=== PATIENT | male | born 1965 | race Caucasian/White ===

== ENCOUNTER 2017-09-15 12:29 | Emergency (ER) | payer OTHER ==
[~2017-09-15] VITALS: Ht 177.8 cm; Wt 99.8 kg
--- OUTSIDE RECORDS SUMMARY | 2017-09-15 12:36 | XMS REPORT | Continuity of Care Document ---
Author Author [facility] Organization [facility] Address Unknown Phone Unavailable Allergies There is no data. Medications There is no data. Problems There is no data. Procedures There is no data. Results There is no data. Encounters ACCT No. Visit Date/Time Discharge Status Pt. Type Provider Facility Loc./Unit Complaint [id number] 07/10/2017 08:54:06 07/10/2017 23:59:59 CLS Outpatient Terry Dalton [id number] 07/02/2017 08:07:41 07/02/2017 23:59:59 CLS Outpatient Terry Dalton [id number] 07/09/2016 08:49:22 07/09/2016 23:59:59 CLS Outpatient Terry Dalton [id number] 06/27/2016 08:05:12 06/27/2016 23:59:59 CLS Outpatient Terry Dalton [id number] 07/07/2015 09:15:21 07/07/2015 23:59:59 CLS Outpatient Terry Dalton [id number] 06/23/2015 09:16:41 06/23/2015 23:59:59 CLS Outpatient Terry Dalton [id number] 07/01/2014 09:19:28 07/01/2014 23:59:59 CLS Outpatient Terry Dalton [id number] 06/28/2014 09:38:29 06/28/2014 23:59:59 CLS Outpatient Terry Dalton [id number] 09/15/2013 09:37:35 09/15/2013 23:59:59 CLS Outpatient Terry Dalton [id number] 07/20/2013 16:06:33 07/20/2013 23:59:59 CLS Outpatient Tati Ralph [id number] 07/03/2013 17:40:37 07/03/2013 23:59:59 CLS Outpatient Terry Dalton [id number] 06/26/2013 09:43:56 06/26/2013 23:59:59 CLS Outpatient Terry Dalton
--- NOTE | 2017-09-15 12:46 | ED Neurological Problem ---
General Stated Complaint: MEMORY LOSS/"FEELS WEIRD" Source: patient, family Exam Limitations: no limitations History of Present Illness Time seen by provider: 12:42 Initial Comments To ER accompanied by his girlfriend with reports of memory loss. Patient awakened from bed this morning, went to take a shower and upon returning to bed from the shower at 11:30am he was noted by the girlfriend to be confused with repetitive question asking. He asked where he was at and where his son was at. His son has been out of her house in [place] for the past 3 weeks. No other symptoms. Patient states that he feels weird. He's never had these symptoms before. He is otherwise healthy except for high cholesterol. States his blood pressure normally is on the low side. He has intact long-term memory but no short-term memory. 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 Timing/Duration: 1 hour Severity: moderate Associated Symptoms: confusion Allergies and Home Medications Allergies Coded Allergies: No Known Drug Allergies (Unverified , 09/15/17) Home Medications Ibuprofen 200 Mg Capsule, 200 MG PO NEEDED, (Reported) [Cholesterol Med] , (Reported) Constitutional: see HPI Eyes: No Symptoms Reported Ears, Nose, Mouth, Throat: no symptoms reported Respiratory: no symptoms reported Cardiovascular: no symptoms reported Genitourinary: no symptoms reported Musculoskeletal: no symptoms reported Skin: no symptoms reported Psychiatric/Neurological: No Symptoms Reported Endocrine: No Symptoms Reported Past [id number] Hx Patient Social History Recent Foreign Travel: No Contact w/Someone Who Travel: No Physical Exam Vital Signs Vital Sign - Last 12Hours 09/15/17 12:35 Temp 98.1 Pulse 69 Resp 20 B/P (MAP) 180/103 (128) Pulse Ox 100 Capillary Refill : General Appearance: WD/WN, no apparent distress HEENT: PERRL/EOMI, normal ENT inspection, TMs normal Neck: non-tender, full range of motion Respiratory: normal breath sounds, no respiratory distress, no accessory muscle use Cardiovascular: regular rate, rhythm, no murmur Gastrointestinal: normal bowel sounds, non tender, soft Extremities: normal range of motion, non-tender Neurologic/Psychiatric: alert, normal mood/affect, other (oriented to person place and situation. He states that he knows he is at the hospital in [facility] but he does not know why he is here, the month, the day. Repetitively asking questions such as "dont I know you from somewhere?" to RN who states she is an acquantance of the pt. ) Crainal Nerves: normal hearing, normal speech, PERRL (Now) Skin: normal color, warm/dry Stroke Onset of Symptoms Date of Onset of Symptoms: Sep 15, 2017 Time of Symptom Onset: 11:30 Onset of Symptoms: Yes NIH Stroke Scale Assessment Level of Consciousness: 0=Alert (0), Level of Consciousness-Questions: 1= Answers one question (1), LOC Commands: 0=Performs both tasks (0), Gaze: Normal (0), Visual [place]: 0=No visual loss (0), Facial Movement (Facial Paresis): 0= Normal symmetrical mnt (0), Motor Function-Arms Right: 0=No drift (0), Motor Function-Arms Left: 0=No drift (0), Motor Function-Legs Right: 0=No drift (0), Motor Function-Legs Left: 0=No drift (0), Limb Ataxia: 0=Absent (0), Sensory: 0= Normal:no loss (0), Best Language: 0=No aphasia (0), Dysarthria: 0=Normal (0), Extinction & Inattention: 0=No abnormality (0), Total: 1 Stroke Thrombolytic Exclusion Age 18 or Over: Yes Acute intenal hemorrhage: No History of CVA: No Uncontrolled Coagulation Defec: No Intracranial Hemorrhage: No Severe Hypertension: No GI or Bleed: No Subarachnoid Hemorrhage: No Intracranial Neoplasm/Aneurysm: No Oral Anticoagulants: No Surgery or Trauma: No Puncture of Non-Compressible V: No Recent CPR: No Diabetic Hemorrhagic Retinopat: No Organ Biopsy: No Recent Obstetric Delivery: No Glucose: No Significant Hepatic Dysfunctio: No NIH Stoke Scale >22: No Bacterial Endocarditis: No Pericarditis: No Improving Symptoms: No Platelets: No TPA Contraindication: No Progress/Results/Core Measures Results/Orders Lab Results Laboratory Tests Test 09/15/17 12:40 Range/Units White Blood Count 11.5 H 4.3-11.0 10^3/uL Red Blood Count 4.87 4.35-5.85 10^6/uL Hemoglobin 15.1 13.3-17.7 G/DL Hematocrit 43 40-54 % Mean Corpuscular Volume 88 80-99 FL Mean Corpuscular Hemoglobin 31 25-34 PG Mean Corpuscular Hemoglobin Concent 35 32-36 G/DL Red Cell Distribution Width 13.4 10.0-14.5 % Platelet Count 260 130-400 10^3/uL Mean Platelet Volume 11.2 H 7.4-10.4 FL Neutrophils (%) (Auto) 50 42-75 % Lymphocytes (%) (Auto) 40 12-44 % Monocytes (%) (Auto) 7 0-12 % Eosinophils (%) (Auto) 2 0-10 % Basophils (%) (Auto) 0 0-10 % Neutrophils # (Auto) 5.8 1.8-7.8 X 10^3 Lymphocytes # (Auto) 4.6 H 1.0-4.0 X 10^3 Monocytes # (Auto) 0.8 0.0-1.0 X 10^3 Eosinophils # (Auto) 0.2 0.0-0.3 10^3/uL Basophils # (Auto) 0.0 0.0-0.1 10^3/uL Prothrombin Time 13.0 12.2-14.7 SEC INR Comment 1.0 0.8-1.4 Activated Partial Thromboplast Time 24 24-35 SEC D-Dimer < 0.27 0.00-0.49 UG/ML Sodium Level 139 135-145 MMOL/L Potassium Level 3.5 L 3.6-5.0 MMOL/L Chloride Level 101 98-107 MMOL/L Carbon Dioxide Level 21 21-32 MMOL/L Anion Gap 17 H 5-14 MMOL/L Blood Urea Nitrogen 15 7-18 MG/DL Creatinine 1.03 0.60-1.30 MG/DL Estimat Glomerular Filtration Rate > 60 BUN/Creatinine Ratio 15 Glucose Level 111 H 70-105 MG/DL Glucometer 115 H 70-110 MG/DL Calcium Level 9.7 8.5-10.1 MG/DL Total Bilirubin 1.4 H 0.1-1.0 MG/DL Aspartate Amino Transf (AST/SGOT) 28 5-34 U/L Alanine Aminotransferase (ALT/SGPT) 38 0-55 U/L Alkaline Phosphatase 63 40-136 U/L Ammonia 16 11-32 UMOL/L Troponin I < 0.30 <0.30 NG/ML Total Protein 7.8 6.4-8.2 GM/DL Albumin 4.6 H 3.2-4.5 GM/DL My Orders Orders - ANJANA SOARES APRN Cbc With Automated Diff (09/15/17 12:41) Protime With Inr (09/15/17 12:41) Partial Thromboplastin Time (09/15/17 12:41) Comprehensive Metabolic Panel (09/15/17 12:41) Fibrin Degradation Products (09/15/17 12:41) Troponin I (09/15/17 12:41) Ua Culture If Indicated (09/15/17 12:41) Chest 1 View, Ap/Pa Only (09/15/17 12:41) Ekg Tracing (09/15/17 12:41) Nothing By Mouth (09/15/17 Dinner) Accucheck Stat ONCE (09/15/17 12:41) Saline Lock/Iv-Start (09/15/17 12:41) Saline Lock/Iv-Start (09/15/17 12:41) Vital Signs - Stroke Q15M (09/15/17 12:41) Ct Head Wo-R/O Stroke (09/15/17 12:41) O2 (09/15/17 12:41) Intake & Output 06,14,22 (09/15/17 12:41) Monitor-Rhythm Ecg Trace Only (09/15/17 12:41) Dysphagia Screening Tool (09/15/17 12:41) Post Thrombolytic Adminstratio (09/15/17 12:41) Drug Screen Stat (Urine) (09/15/17 12:41) Ammonia (09/15/17 12:41) Iohexol Injection (Omnipaque 350 Mg/Ml 1 (09/15/17 13:15) Ns (Ivpb) (Sodium Chloride 0.9% Ivpb Bag (09/15/17 13:15) Sodium Chloride Flush (Catheter Flush Sy (09/15/17 13:15) Ct Angio Head W (09/15/17 ) Vital Signs/I&O Vital Sign - Last 12Hours 09/15/17 09/15/17 12:35 14:43 Temp 98.1 Pulse 69 70 Resp 20 18 B/P (MAP) 180/103 (128) Pulse Ox 100 99 Departure Communication (Admissions) Progress Notes 1430-patient is back to baseline at this time. NIH of 0. Patient recalls all events and is now joking. His girlfriend's sister who knows him well and is an RN states "this is the Baldo that I'm familiar with". I spoke with Dr. Yun, neurologist at [facility] per patient's family's request. She would be happy to take the patient for admission today if he feels this would be best, alternatively, if he would prefer to go home and follow up with neurology in the outpatient setting that would also be fine. At this time he also would not need TPA and an MRI today which was unavailable here will not change our management at this time. She states he does warrant an EEG and an MRI however. Impression Impression: Primary Impression: Transient global amnesia Disposition: 01 HOME, SELF-CARE Condition: Stable Departure-Patient Inst. Decision time for Depature: 14:38 Referrals: NO,LOCAL PHYSICIAN (PCP/Family) Primary Care Physician Patient Instructions: Amnesia Add. Discharge Instructions: 1. Call neurology of your choosing on Saturday to make an appointment for follow- up. You will need an EEG and MRI in the outpatient setting. Return to the emergency room for any recurrence of symptoms. Start taking a baby aspirin daily. ANJANA SOARES APRN Sep 15, 2017 12:46
[2017-09-15 12:50] LABS: BASOPHILS % (AUTO) 0 % (0-10); EOSINOPHILS # (AUTO) 0.2 10^3/uL (0.0-0.3); EOSINOPHILS % (AUTO) 2 % (0-10); HEMATOCRIT 43 % (40-54); HEMOGLOBIN 15.1 G/DL (13.3-17.7); LYMPHOCYTES # (AUTO) 4.6 X 10^3 (1.0-4.0); LYMPHOCYTES % (AUTO) 40 % (12-44); MEAN CORPUSCULAR HEMOGLOBIN 31 PG (25-34); MEAN CORPUSCULAR HGB CONC 35 G/DL (32-36); MEAN CORPUSCULAR VOLUME 88 FL (80-99); MEAN PLATELET VOLUME 11.2 FL (7.4-10.4); MONOCYTES # (AUTO) 0.8 X 10^3 (0.0-1.0); MONOCYTES % (AUTO) 7 % (0-12); NEUTROPHILS # (AUTO) 5.8 X 10^3 (1.8-7.8); NEUTROPHILS % (AUTO) 50 % (42-75); PLATELET COUNT 260 10^3/uL (130-400); RED BLOOD COUNT 4.87 10^6/uL (4.35-5.85); RED CELL DISTRIBUTION WIDTH 13.4 % (10.0-14.5); WHITE BLOOD COUNT 11.5 10^3/uL (4.3-11.0)
[2017-09-15 13:00] LABS: PARTIAL THROMBOPLASTIN TIME 24 SEC (24-35)
--- NOTE | 2017-09-15 13:01 | Diagnostic Imaging Report ---
EXAM: CT head without contrast. TECHNIQUE: Axial noncontrast CT images of the head were obtained. DATE: 09/15/2017. COMPARISON: None. INDICATION: 52-year-old male, evaluation for stroke. Change in neurologic status. FINDINGS: The ventricles and cerebral spinal fluid spaces are of normal size and configuration for the patient's age. There is no mass effect or midline shift. There is no acute intracranial hemorrhage. There is no abnormal extra-axial fluid collection. The visualized portions of the paranasal sinuses, mastoid air cells and middle ears are well aerated. IMPRESSION: 1. No identified acute intracranial abnormality. Dictated by: Dictated on workstation # [id number]
[2017-09-15 13:02] LABS: FIBRIN DEGRADATION PRODUCTS < 0.27 UG/ML (0.00-0.49)
[2017-09-15 13:06] LABS: ALANINE AMINOTRANSFERASE 38 U/L (0-55); ALBUMIN 4.6 GM/DL (3.2-4.5); ALKALINE PHOSPHATASE 63 U/L (40-136); AMMONIA 16 UMOL/L (11-32); BILIRUBIN,TOTAL 1.4 MG/DL (0.1-1.0); BUN/CREATININE RATIO 15; CALCIUM 9.7 MG/DL (8.5-10.1); CARBON DIOXIDE 21 MMOL/L (21-32); CHLORIDE 101 MMOL/L (98-107); CREATININE SERUM 1.03 MG/DL (0.60-1.30); GFR ESTIMATED > 60; GLUCOSE 111 MG/DL (70-105); POTASSIUM 3.5 MMOL/L (3.6-5.0); SODIUM 139 MMOL/L (135-145); TOTAL PROTEIN 7.8 GM/DL (6.4-8.2)
--- NOTE | 2017-09-15 13:12 | Diagnostic Imaging Report ---
EXAMINATION: Chest radiograph, portable AP view. DATE: September 15, 2017 at 1312 hours. INDICATION: 52-year-old male, stroke protocol. COMPARISON: None. FINDINGS: Heart size and mediastinal contours are unremarkable. There is no identified pneumothorax. There is no large pleural effusion. There is no identified focal airspace consolidation. IMPRESSION: No identified acute cardiopulmonary abnormality. Dictated by: Dictated on workstation # [id number]
[2017-09-15] MEDS ORDERED: IBUP200C75 PO (13:13)
[2017-09-15] MEDS ORDERED: CHOLESTEROL MED (13:13)
[2017-09-15] MEDS ORDERED: IOHEXOL 350 MG/ML 100 ML (OMNIPAQUE 350) VIAL IV ONE (13:15)
[2017-09-15] MEDS ORDERED: NS 100 ML (IVPB) BAG IV ONE (13:15)
[2017-09-15] MEDS ORDERED: CATHETER FLUSH 10 ML SYR IV PRN (13:15)
--- NOTE | 2017-09-15 14:09 | Diagnostic Imaging Report ---
PROCEDURE: CT angiography of the head with and without contrast. TECHNIQUE: Noncontrast CT of the head was obtained. Subsequently, after intravenous administration of contrast, thin section axial CT angiography of the head was performed. Source data was reformatted into multiple MIP reformats. Delayed postcontrast acquisition of the head was also acquired. Date: 09/15/2017. Indication: 52-year-old male, memory loss. Evaluation for stroke. Comparison: CT head without contrast 09/15/2017. Findings: There is no identified abnormal intracranial enhancement. There is no mass effect or midline shift. The visualized portions of the right and left vertebral arteries are patent. The basilar artery is patent. The right posterior cerebral artery is patent. The left posterior cerebral artery is patent. There is a patent right posterior communicating artery. The visualized segments of the right internal carotid artery are patent. The right middle cerebral artery is patent. The right anterior cerebral artery is patent. The left anterior cerebral artery is patent. The left middle cerebral artery is patent. The left internal carotid artery is patent. There is no identified aneurysm. There is no high-grade stenosis or vascular occlusion. IMPRESSION: 1. Patent arterial head vasculature without high-grade stenosis, occlusion, or aneurysm. Dictated by: Dictated on workstation # [id number]
[2017-09-15 14:43] VITALS: BP 140/93
== END 2017-09-15 15:03 | disposition home or self-care (01) ==
LOC: ER 12:33
DX: G45.4 Transient global amnesia (principal)
CPT/HCPCS: 36415; 70450; 70496; 71010; 80053; 82140; 82962; 84484; 85025; 85379; 85610; 85730; 93005; 93041

== ENCOUNTER → 2022-07-31 | Outpatient (CLI) | payer SELFPAY ==
[~2022-07-31] MED LIST: CHOLESTEROL MED; IBUP-2185 PO
--- NOTE | 2022-07-31 16:14 | Diagnostic Imaging Report ---
EXAMINATION: CT calcium scoring without contrast. TECHNIQUE: Multiple contiguous axial images were obtained through the chest without the use of intravenous contrast for purposes of calcium scoring. All CT scans use one or more of the following dose optimizing techniques: automated exposure control, MA and/or KvP adjustment based on patient size and exam type or iterative reconstruction. HISTORY: Screening exam COMPARISON: None available. FINDINGS: The calculated coronary artery calcium score is 8.4. There is no edema or pneumonia. No pleural effusion. No pneumothorax. No suspicious nodules. Heart size is normal. No pericardial effusion. Aorta is normal in caliber. There is no mediastinal lymphadenopathy. There are no suspicious osseus lesions. IMPRESSION: 1. Calculated coronary artery calcium score of 8.4, placing the patient in the sixtieth percentile. Dictated by: Dictated on workstation # [id number]
== END ==
LOC: RAD 15:00
PROVIDERS: ATTEND Internal Medicine
DX: Z13.6 Encounter for screening for cardiovascular disorders (principal)
CPT/HCPCS: 75571